=== PATIENT | male | born 1985 | race Caucasian/White ===

== ENCOUNTER 2018-07-22 15:07 | Emergency (ER) | payer SELFPAY ==
[2018-07-22 15:19] VITALS: BP 126/67
--- NOTE | 2018-07-22 15:58 | ER Document Report ---
HPI - HPI Patient complains to provider of: right shoulder pain Time Seen by Provider: 07/22/18 15:32 Onset: Other Quality of pain: Achy Pain Level: 2 - 2 weeks Context: Patient presents emergency department with complaints of right shoulder pain. Patient reports it started approximately 2 weeks ago. He reports he lifts weights on a regular basis he also is in construction and helps move furniture. He denies trauma. Reports that it feels better when he is lifting weights but afterwards it aches. He reports the pain wakes him up at night also. No numbness or tingling. Patient has full range of motion no weakness. Patient reports no pain when he is inactive but will start hurting when he moves his shoulder. Declines pain medication at this time. Associated Symptoms: None Exacerbated by: Movement Relieved by: Denies Similar symptoms previously: No Recently seen / treated by doctor: No - MUSCULOSKELETAL Musculoskeletal: REPORTS: Extremity pain - right shoulder Past Medical History - General Information source: Patient - Social History Smoking Status: Former Smoker Chew tobacco use (# tins/day): No Frequency of alcohol use: None Drug Abuse: None Occupation: Construction Family History: Reviewed & Not Pertinent Patient has suicidal ideation: No Patient has homicidal ideation: No - Medical History Medical History: Negative Renal/ Medical History: Denies: Hx Peritoneal Dialysis Surgical Hx: Negative Vertical Provider Document - CONSTITUTIONAL Agree With Documented VS: Yes Exam Limitations: No Limitations General Appearance: WD/WN, No Apparent Distress - INFECTION CONTROL TRAVEL OUTSIDE OF THE [place] IN LAST 30 DAYS: No - HEENT HEENT: Atraumatic, Normocephalic - NECK Neck: Normal Inspection, Supple. negative: Lymphadenopathy-Left, Lymphadenopathy-Right - RESPIRATORY Respiratory: No Respiratory Distress - CARDIOVASCULAR Cardiovascular: Regular Rate - MUSCULOSKELETAL/EXTREMETIES Musculoskeletal/Extremeties: MAEW, FROM, Non-Tender - Shoulder nontender to touch no obvious deformity good distal movement & sensation good radial pulse no weakness noted no erythema swelling or warmth to the joint. no Pain with pronation supination negative drop test - NEURO Level of Consciousness: Awake, Alert, Appropriate Motor/Sensory: No Motor Deficit - DERM Integumentary: Warm, Dry Adult Front & Back Diagram: 1 - Reports pain 2 - Radiates up the neck Course - Re-evaluation Re-evalutation: 07/22/18 Patient was instructed on negative shoulder x-ray. Discussed conservative treatment to include abstaining from lifting weights and using ibuprofen. He verbalized understanding to all instructions. He was instructed to follow-up with orthopedics for further evaluation he verbalized understanding. Dictation of this chart was performed using voice recognition software; therefore, there may be some unintended grammatical errors. - Vital Signs Vital signs: Temp Pulse Resp BP Pulse Ox 98.8 F 77 18 126/67 H 100 07/22/18 15:18 07/22/18 15:18 07/22/18 15:18 07/22/18 15:18 07/22/18 15:18 - Diagnostic Test Radiology reviewed: Image reviewed, Reports reviewed - EXAM DESCRIPTION: SHOULDER RIGHT 2 OR MORE VIEWS COMPLETED DATE/TIME: 07/22/2018 4:08 pm REASON FOR STUDY: pain COMPARISON: None. NUMBER OF VIEWS: Three views. TECHNIQUE: Internal rotation, external rotation, and Y view images acquired of the right shoulder. LIMITATIONS: None. FINDINGS: MINERALIZATION: Normal. BONES: No acute fracture or dislocation. No worrisome bone lesions. No significant osteophytes. GLENOHUMERAL JOINT: No significant findings. ACROMIOCLAVICULAR JOINT: No large osteophytes. SOFT TISSUES: No calcifications. VISUALIZED RIBS, SPINE, AND LUNG: No other significant finding. OTHER: No other significant finding. IMPRESSION: NEGATIVE STUDY OF THE RIGHT SHOULDER. NO EXPLANATION FOR PAIN. Discharge - Discharge Clinical Impression: Shoulder pain, right Qualifiers: Chronicity: acute Qualified Code(s): M25.511 - Pain in right shoulder Condition: Stable Disposition: HOME, SELF-CARE Instructions: Ibuprofen (General) ([facility]) Additional Instructions: *You have been evaluated for right shoulder pain *Rest/Ice/Elevate *Follow up with orthopedics-call for an appointment *Take medication as prescribed *Return to ED for worsening condition, changes, needs Prescriptions: Ibuprofen [Motrin 800 mg Tablet] 800 mg PO TID #30 tablet Forms: Elevated Blood Pressure Referrals: [facility] [Provider Group] - Follow up in 1 week
--- NOTE | 2018-07-22 16:51 | RADIOLOGY REPORT (SQ) ---
EXAM DESCRIPTION: SHOULDER RIGHT 2 OR MORE VIEWS COMPLETED DATE/TIME: 07/22/2018 4:08 pm REASON FOR STUDY: pain COMPARISON: None. NUMBER OF VIEWS: Three views. TECHNIQUE: Internal rotation, external rotation, and Y view images acquired of the right shoulder. LIMITATIONS: None. FINDINGS: MINERALIZATION: Normal. BONES: No acute fracture or dislocation. No worrisome bone lesions. No significant osteophytes. GLENOHUMERAL JOINT: No significant findings. ACROMIOCLAVICULAR JOINT: No large osteophytes. SOFT TISSUES: No calcifications. VISUALIZED RIBS, SPINE, AND LUNG: No other significant finding. OTHER: No other significant finding. IMPRESSION: NEGATIVE STUDY OF THE RIGHT SHOULDER. NO EXPLANATION FOR PAIN. TECHNICAL DOCUMENTATION: JOB ID: [id number] [employer]- All Rights Reserved Reading location - IP/workstation name: [email or web address]
== END 2018-07-22 17:03 | disposition home or self-care (01) ==
LOC: ER 15:07
DX: M25.511 Pain in right shoulder (principal); Z87.891 Personal history of nicotine dependence
CPT/HCPCS: 99283

== ENCOUNTER 2019-01-14 09:00 | Emergency (ER) | payer SELFPAY ==
[2019-01-14] MEDS ORDERED: IBUPROFEN 600 MG TABLET PO ONE (09:47)
--- NOTE | 2019-01-14 09:49 | ER Document Report ---
ED Medical Screen (RME) - General Chief Complaint: Chest Pain Stated Complaint: CHEST PAIN Time Seen by Provider: 01/14/19 09:43 Mode of Arrival: Ambulatory Information source: Patient TRAVEL OUTSIDE OF THE [place] IN LAST 30 DAYS: No - HPI Patient complains to provider of: JOE PEREZ Notes: 01/14/19 09:48 Patient here with complaints of left-sided chest pain with cough. States the cough started yesterday morning and then yesterday evening he developed left- sided chest pain with cough. States that he also coughed up some blood. He is a non-smoker. He denies any recent long trips or surgeries, leg pain or leg swelling, cancer, history of DVT or PE. States that he has been feeling very cold and having the chills. Exam No distress, nontoxic-appearing. Lungs clear and equal throughout. Heart sounds normal. Plan CBC, CMP, EKG, chest x-ray, Motrin An initial examination was made on the patient as part of the triage process, and it was determined a more comprehensive evaluation was necessary. Initial labs were ordered and patient was transferred to another provider in the ED who assumed care and finished evaluation and plan. - Related Data Allergies/Adverse Reactions: No Known Allergies Allergy (Unverified 12/17/15 19:57) Past Medical History Renal/ Medical History: Denies: Hx Peritoneal Dialysis Physical Exam - Vital signs Vitals: Temp Pulse Resp BP Pulse Ox 99.9 F 88 16 143/71 H 98 01/14/19 09:15 01/14/19 09:15 01/14/19 09:15 01/14/19 09:15 01/14/19 09:15 Course - Vital Signs Vital signs: Temp Pulse Resp BP Pulse Ox 99.9 F 88 16 143/71 H 98 01/14/19 09:15 01/14/19 09:15 01/14/19 09:15 01/14/19 09:15 01/14/19 09:15
--- NOTE | 2019-01-14 10:25 | RADIOLOGY REPORT (SQ) ---
EXAM DESCRIPTION: CHEST 2 VIEWS COMPLETED DATE/TIME: 01/14/2019 10:15 am REASON FOR STUDY: LEFT CP WITH COUGH, hemoptysis COMPARISON: None. EXAM PARAMETERS: NUMBER OF VIEWS: two views TECHNIQUE: Digital Frontal and Lateral radiographic views of the chest acquired. RADIATION DOSE: NA LIMITATIONS: none FINDINGS: LUNGS AND PLEURA: Faint basilar density best visualized on the lateral image. No pleural effusion. No pneumothorax. MEDIASTINUM AND HILAR STRUCTURES: No masses or contour abnormalities. HEART AND VASCULAR STRUCTURES: Heart normal size. No evidence for failure. BONES: No acute findings. HARDWARE: None in the chest. OTHER: No other significant finding. IMPRESSION: FAINT BASILAR DENSITY, POSSIBLE ATELECTASIS VERSUS EARLY INFILTRATE FROM PNEUMONIA. TECHNICAL DOCUMENTATION: JOB ID: [id number] [employer]- All Rights Reserved Reading location - IP/workstation name: [email or web address]
[2019-01-14 10:28] LABS: ABSOLUTE EOSINOPHILS # (AUTO) 0.1 10^3/uL (0.0-0.6); ABSOLUTE LYMPHOCYTES (AUTO) 0.9 10^3/uL (0.5-4.7); ABSOLUTE MONOCYTES (AUTO) 0.7 10^3/uL (0.1-1.4); ABSOLUTE NEUT (AUTO) 6.9 10^3/uL (1.7-8.2); BASOPHILS % (AUTO) 0.2 % (0-2); EOSINOPHILS % (AUTO) 0.9 % (0-6); HEMATOCRIT 44.9 % (37.9-51.0); HEMOGLOBIN 15.4 g/dL (13.5-17.0); LYMPHOCYTES % (AUTO) 10.7 % (13-45); MEAN CORPUSCULAR HEMOGLOBIN 31.2 pg (27.0-33.4); MEAN CORPUSCULAR HGB CONC 34.2 g/dL (32.0-36.0); MEAN CORPUSCULAR VOLUME 91 fl (80-97); MONOCYTES % (AUTO) 8.2 % (3-13); PLATELET COUNT 197 10^3/uL (150-450); RED BLOOD COUNT 4.92 10^6/uL (4.35-5.55); RED CELL DISTRIBUTION WIDTH 12.9 % (11.5-14.0); TOTAL CELLS COUNTED % (AUTO) 100 %; WHITE BLOOD COUNT 8.6 10^3/uL (4.0-10.5)
[2019-01-14 10:48] LABS: ALANINE AMINOTRANSFERASE 24 U/L (21-72); ALBUMIN 4.3 g/dL (3.5-5.0); ALKALINE PHOSPHATASE 49 U/L (38-126); ANION GAP 11 (5-19); ASPARTATE AMINO TRANSFERASE 26 U/L (17-59); BILIRUBIN,DIRECT 0.2 mg/dL (0.0-0.4); BILIRUBIN,TOTAL 1.4 mg/dL (0.2-1.3); BLOOD UREA NITROGEN 15 mg/dL (7-20); CALCIUM 9.4 mg/dL (8.4-10.2); CARBON DIOXIDE 29 mmol/L (22-30); CHLORIDE 100 mmol/L (98-107); GLUCOSE 119 mg/dL (75-110); POTASSIUM 4.5 mmol/L (3.6-5.0); SODIUM 140.2 mmol/L (137-145); TOTAL PROTEIN 7.4 g/dL (6.3-8.2)
[2019-01-14] MEDS ORDERED: LEVOFLOXACIN 750 MG TABLET PO ONE (10:55)
--- NOTE | 2019-01-14 10:57 | ER Document Report ---
ED General - General Chief Complaint: Chest Pain Stated Complaint: CHEST PAIN Time Seen by Provider: 01/14/19 09:43 Mode of Arrival: Ambulatory TRAVEL OUTSIDE OF THE [place] IN LAST 30 DAYS: No - Related Data Allergies/Adverse Reactions: No Known Allergies Allergy (Unverified 12/17/15 19:57) Past Medical History - General Information source: Patient - Social History Smoking Status: Never Smoker Chew tobacco use (# tins/day): No Frequency of alcohol use: None Drug Abuse: None Family History: Reviewed & Not Pertinent Patient has suicidal ideation: No Patient has homicidal ideation: No Renal/ Medical History: Denies: Hx Peritoneal Dialysis Physical Exam - Vital signs Vitals: Temp Pulse Resp BP Pulse Ox 99.9 F 88 16 143/71 H 98 01/14/19 09:15 01/14/19 09:15 01/14/19 09:15 01/14/19 09:15 01/14/19 09:15 Course - Vital Signs Vital signs: Temp Pulse Resp BP Pulse Ox 99.9 F 88 16 143/71 H 98 01/14/19 09:15 01/14/19 09:15 01/14/19 09:15 01/14/19 09:15 01/14/19 09:15 - Laboratory Result Diagrams: 01/14/19 10:05 01/14/19 10:05 Laboratory results interpreted by me: 01/14/19 01/14/19 10:05 10:05 Seg Neutrophils % 80.0 H Lymphocytes % 10.7 L Glucose 119 H Total Bilirubin 1.4 H Discharge - Discharge Clinical Impression: Bacterial pneumonia, Cough Condition: Good Disposition: HOME, SELF-CARE Additional Instructions: Come back immediately for any worsening cough, leg swelling, fever, chest pain, difficulty breathing or swallowing, or any other acute problems. Please finish the course of antibiotics that we have prescribed and follow-up with your primary care physician. Prescriptions: Levofloxacin [Levaquin 750 mg Tablet] 750 mg PO DAILY #5 tablet
--- NOTE | 2019-01-14 11:01 | ER Document Report ---
ED General - General Chief Complaint: Chest Pain Stated Complaint: CHEST PAIN Time Seen by Provider: 01/14/19 09:43 Mode of Arrival: Ambulatory Notes: Patient is a 33-year-old male who presents today with the onset yesterday of some congestion, cough, with left-sided chest discomfort with coughing. He states some whitish phlegm with some blood tinged spots. He states he has had some mild chills. He denies any headache, sore throat, abdominal pain, back pain, weakness or numbness. No rash noted. She has had no recent trips or travel. Patient does have a twin brother that he states recently was diagnosed with lymphoma. Recent states no radiation of the pain. No other aggravating or relieving factors. TRAVEL OUTSIDE OF THE [place] IN LAST 30 DAYS: No - Related Data Allergies/Adverse Reactions: No Known Allergies Allergy (Unverified 12/17/15 19:57) Past Medical History - General Information source: Patient - Social History Smoking Status: Never Smoker Chew tobacco use (# tins/day): No Frequency of alcohol use: None Drug Abuse: None Family History: Reviewed & Not Pertinent Patient has suicidal ideation: No Patient has homicidal ideation: No Renal/ Medical History: Denies: Hx Peritoneal Dialysis Review of Systems - Review of Systems Constitutional: Fever EENT: Nose congestion. denies: Eye discharge, Double vision, Ear discharge Cardiovascular: denies: Palpitations, Dizziness, Lightheaded Respiratory: denies: Short of breath Gastrointestinal: denies: Vomiting Genitourinary: denies: Dysuria Musculoskeletal: denies: Leg swelling Skin: Other - no hives. denies: Rash Neurological/Psychological: Other - no slurred speech -: Yes All other systems reviewed and negative Physical Exam - Vital signs Vitals: Temp Pulse Resp BP Pulse Ox 99.9 F 88 16 143/71 H 98 01/14/19 09:15 01/14/19 09:15 01/14/19 09:15 01/14/19 09:15 01/14/19 09:15 Notes: Reviewed vital signs and nursing note as charted by RN. CONSTITUTIONAL: Alert and oriented and responds appropriately to questions. Well-appearing; well-nourished HEAD: Normocephalic; atraumatic EYES: PERRL; Conjunctivae clear, sclerae non-icteric ENT: Normal nose; bilateral nonpurulent nasal rhinorrhea; moist mucous membranes; pharynx without lesions noted NECK: Supple without meningismus; non-tender; no cervical lymphadenopathy, no masses CARD: Regular rate and rhythm; no murmurs; symmetric distal pulses RESP: Normal chest excursion without splinting or tachypnea; breath sounds clear and equal bilaterally; scattered rhonchi mostly to the left lung base ABD/GI: Normal bowel sounds; non-distended; soft, non-tender; no palpable organomegaly or masses BACK: The back appears normal and is non-tender to palpation EXT: Normal ROM in all joints; non-tender to palpation; no edema SKIN: No acute lesions noted NEURO: CN 2-12 intact; 5/5 bilateral upper and lower extremity strength with sensation intact to light touch PSYCH: The patient's mood and manner are appropriate. Grooming and personal hygiene are appropriate. Course - Re-evaluation Re-evalutation: Given the history and physical examination, we will obtain an x-ray of the chest, and an EKG. Given the patient's history of lymphoma and his twin brother, we will obtain a CBC. 01/14/19 11:01 Labs as recorded. X-ray of the chest shows a possible pneumonia. Vital signs are stable. Patient still denies any chest pain at this time. EKG as recorded. I do have an extremely low pretest probability for pulmonary embolism, aortic dissection, or ACS. Patient will be discharged home with a short course of antibiotics, strict return precautions, and follow-up with the primary care physician. - Vital Signs Vital signs: Temp Pulse Resp BP Pulse Ox 99.9 F 88 16 143/71 H 98 01/14/19 09:15 01/14/19 09:15 01/14/19 09:15 01/14/19 09:15 01/14/19 09:15 - Laboratory Result Diagrams: 01/14/19 10:05 01/14/19 10:05 Laboratory results interpreted by me: 01/14/19 01/14/19 10:05 10:05 Seg Neutrophils % 80.0 H Lymphocytes % 10.7 L Glucose 119 H Total Bilirubin 1.4 H Discharge - Discharge Clinical Impression: Bacterial pneumonia, Cough Condition: Good Disposition: HOME, SELF-CARE Additional Instructions: Come back immediately for any worsening cough, leg swelling, fever, chest pain, difficulty breathing or swallowing, or any other acute problems. Please finish the course of antibiotics that we have prescribed and follow-up with your primary care physician. Prescriptions: Levofloxacin [Levaquin 750 mg Tablet] 750 mg PO DAILY #5 tablet
[2019-01-14 11:40] VITALS: BP 120/67
--- NOTE | 2019-01-16 10:20 | EKG REPORT ---
SEVERITY:- ABNORMAL ECG - SINUS RHYTHM BORDERLINE Q LEAD I AND AVL : Confirmed by: Unique Flores 16-Jan-2019 10:19:55
== END 2019-01-14 11:42 | disposition home or self-care (01) ==
LOC: ER 09:00
DX: J15.9 Unspecified bacterial pneumonia (principal); R05 Cough; R07.9 Chest pain, unspecified; R09.81 Nasal congestion
CPT/HCPCS: 36415; 71046; 80053; 85025; 93005; 93010; 99285